=== PATIENT | female | born 1980 | race Caucasian/White ===

== ENCOUNTER 2023-08-18 15:21 | Emergency (ER) | payer OTHER ==
[~2023-08-18] VITALS: Ht 157.5 cm; Wt 64.4 kg
[2023-08-18 15:34] VITALS: BP 140/92; PULSE 112; RESP 16; TEMP 98.5; O2SAT 97
[2023-08-18 16:26] LABS: HEMOGLOBIN 17.3 g/dL (12.0-16.0); MEAN CORPUSCULAR HEMOGLOBIN 32 pg (27-31); MEAN CORPUSCULAR HGB CONC 35 g/dL (33-37); MEAN CORPUSCULAR VOLUME 90.7 fL (80-94); PLATELET COUNT (AUTO) 398 K/uL (140-450); RED BLOOD CELL COUNT(AUTO) 5.51 MIL/uL (4.20-5.40); RED CELL DISTRIBUTION WIDTH 12.3 % (11.6-13.7); WHITE BLOOD COUNT (AUTO) 19.5 K/uL (4.8-10.8)
[2023-08-18 16:27] LABS: APPEARANCE,URINE CLEAR (CLEAR); BILIRUBIN,URINE 1+ (NEGATIVE); BLOOD, URINE 1+ (NEGATIVE); COLOR,URINE YELLOW (YELLOW); LEUKOCYTE ESTERASE ,URINE NEGATIVE (NEGATIVE); NITRITE, URINE NEGATIVE (NEGATIVE); PROTEIN,URINE 2+ (NEGATIVE); UGLUCOSE NEGATIVE (NEGATIVE); UROBILINOGEN,URINE 0.2 EU/dL (0.2 - 1)
[2023-08-18 16:39] LABS: ANION GAP 17.5 (8-16); BACTERIA,URINE 10-30 (MOD) /HPF (None Seen); CALCIUM 9.3 mg/dL (8.5-10.1); CREATININE 0.9 mg/dL (0.6-1.3); ICTOTEST NEGATIVE (NEGATIVE); POTASSIUM 3.5 mmol/L (3.5-5.1); RBC,URINE 0-5 /HPF (0-5); WBC,URINE 0-5 /HPF (0-5)
[2023-08-18 16:43] LABS: ALBUMIN 4.5 g/dL (3.4-5.0); BILIRUBIN,DIRECT 0.1 mg/dL (0.0-0.3); TOTAL BILIRUBIN 0.6 mg/dL (0.0-1.0); TOTAL PROTEIN, SERUM 8.2 g/dL (6.4-8.2)
[2023-08-18 16:54] LABS: LYMPHOCYTES % (MANUAL) 3 % (20-46); MONOCYTES % (MANUAL) 3 % (5-12); PLATELET ESTIMATE ADEQUATE
[2023-08-18] MEDS ORDERED: ONDANSETRON 4 MG ODT ONE (17:37)
[2023-08-18] MEDS: ONDANSETRON 4 MG ODT PO ONE (17:39)
[2023-08-18] MEDS: ALUMINUM HYD/MAG/SIMETHICONE 30 ML UDC PO ONE (17:44)
[2023-08-18] MEDS: NACL 0.9% 1,000 ML IV ONE (17:44)
[2023-08-18] MEDS: PANTOPRAZOLE 40 MG INJ VIAL IVP ONE (18:12)
[2023-08-18 19:37] VITALS: BP 141/92; PULSE 98; RESP 16; TEMP 98.1; O2SAT 97
[2023-08-18] MEDS: HYDROcodone/APAP 5/325 MG 1 TAB TAB PO ONE (19:57)
[2023-08-18] MEDS ORDERED: PANT40EC56 PO (19:59)
[2023-08-18] MEDS ORDERED: ACET-8905 PO (19:59)
[2023-08-18] MEDS ORDERED: MAA30 PO (19:59)
[2023-08-18] MEDS ORDERED: ONDA-188 PO (19:59)
== END 2023-08-18 20:14 | disposition home or self-care (01) ==
LOC: MED 15:21
DX: K29.70 Gastritis, unspecified, without bleeding (principal); D72.829 Elevated white blood cell count, unspecified; E86.0 Dehydration; K21.9 Gastro-esophageal reflux disease without esophagitis; R03.0 Elevated blood-pressure reading, without diagnosis of hypertension; Z90.49 Acquired absence of other specified parts of digestive tract; Z79.1 Long term (current) use of non-steroidal anti-inflammatories (NSAID); Z79.899 Other long term (current) drug therapy
CPT/HCPCS: 36415; 74176; 80048; 80076; 81001; 81025; 83690; 85025; 87086; 96361; 96374; 99285; C9113; J7030; Q0162